=== PATIENT | male | born 1995 | race Caucasian/White ===

== ENCOUNTER 2017-10-29 20:41 | Inpatient (IN) ==
[2017-10-29] MEDS ORDERED: 0.9 % Sodium Chloride 1,000 ML IVC ONE ×2 (20:56→21:36)
--- NOTE | 2017-10-29 20:59 | Emergency Department Note ---
Disposition Clinical Impression: Hematochezia, Orthostasis, Hx of Crohn's disease Disposition: Admitted As Inpatient Condition: Undetermined Referrals: Julio Smith MD [Primary Care Provider] - Forms: ED Satisfaction Letter Time of Disposition: 21:47 GI Bleed HPI - General Chief complaint: ED GI Bleed Stated complaint: Rectal Bleeding Time Seen by Provider: 10/29/17 20:50 Source: patient Mode of arrival: ambulatory Limitations: no limitations Nursing Notes Reviewed: Yes Vital Signs Reviewed: Yes - History of Present Illness HPI Narrative: 22-year-old male with recent diagnosis of Crohn's disease arrives to the emergency department with roughly 24 hours of rectal bleeding. The patient states he did not think much of it initially because it is not uncommon for him to have intermittent episodes of bloody stool and the patient states that earlier today he started having gross blood in her stool was not feeling well. The patient states he went and played 9 rounds of golf and states that he felt very ill at that time so he decided to stop playing go home. The patient states that he had another bowel movement home and was gross blood and he passed out. The patient states he sort of blacked out prior to and then cut off fell over. He had no loss of bowel or bladder at that time. He remembers waking up. He said it was just a couple seconds. He denies any previous history of anything like this in the past. The patient recently had a CT scan 2 days ago for his abdomen. He is currently on prednisone as well as by mouth antibiotics for his Crohn's disease. He denies any abdominal pain is unusual for him or any other changes other than the rectal bleeding. He is resting comfortably in the room at this time. - Related Data Home Medications Medication Instructions Recorded Confirmed Escitalopram [Lexapro] 10 mg PO DAILY 08/30/17 10/11/17 Xyzal 5 mg PO DAILY 10/11/17 10/11/17 predniSONE [PredniSONE] 40 mg PO DAILY 10/11/17 10/11/17 Allergies Allergy/AdvReac Type Severity Reaction Status Date / Time Sulfa (Sulfonamide Allergy See Verified 10/11/17 10:17 Antibiotics) Comments All systems ED: reviewed and negative except as stated. Constitutional: Denies: fever, chills ENT ED: Denies: congestion Cardiovascular: Denies: chest pain Respiratory: Denies: dyspnea Gastrointestinal: Reports: abdominal pain (baseline), hematochezia. Denies: nausea, vomiting, diarrhea, constipation, hematemesis, melena Genitourinary: Denies: urgency, dysuria Musculoskeletal: Denies: back pain Integumentary: Denies: rash Neurological: Denies: headache Past Medical History - Past Medical History Attestation: Yes The following information was validated with the patient. Source: patient Medical history: Reports: other (Crohns) Psychiatric history: Reports: anxiety - Social History Smoking Status: Never smoker Smokeless Tobacco Status: No Alcohol use: Reports: none Drug use: Reports: none Physical Exam - General Limitations: no limitations General appearance: alert, in no apparent distress - Head Head exam: atraumatic, normocephalic, normal inspection - Eye Eye exam: Present: normal appearance, PERRL, EOMI - ENT ENT exam: normal exam, normal oropharynx, mucous membranes moist - Neck Neck exam: Present: normal inspection, full ROM, trachea midline - Chest Chest inspection: Present: normal inspection, symmetric chest wall rise - Respiratory Respiratory exam: Present: normal lung sounds bilaterally - Cardiovascular Cardiovascular exam: Present: normal rhythm, tachycardia, normal heart sounds - Abdominal Exam Abdominal exam: Present: soft, Non-Tender. Absent: tenderness, distention, guarding, rebound, rigidity, Clemente's sign, Rovsing's sign, tenderness at McBurney's Point - Rectal Exam Restaurant Assistant Manager present during exam: Yes Rectal exam: Present: normal inspection, normal rectal tone, bloody stool. Absent: hemorrhoids - Extremities Exam Extremities exam: Present: normal inspection, full ROM. Absent: tenderness, pedal edema - Neurological Exam Neurological exam: Present: alert, oriented X3 - Skin Skin exam: Present: warm, dry, intact, normal color Course Vital Signs Temperature 98.2 F 10/29/17 20:42 Pulse Rate 141 10/29/17 20:42 Respiratory Rate 16 10/29/17 20:42 Blood Pressure 106/74 10/29/17 20:42 O2 Sat by Pulse Oximetry 100 10/29/17 20:42 Temperature 98.2 F 10/29/17 20:42 Pulse Rate 115 10/29/17 21:17 Respiratory Rate 16 10/29/17 20:42 Blood Pressure 135/89 10/29/17 21:17 O2 Sat by Pulse Oximetry 100 10/29/17 20:42 Oxygen Delivery Oxygen Delivery Room Air GI Bleed - [facility] Narrative Medical decision making narrative: Patient's workup in the emergency department consistent with symptoms. The patient was grossly positive on rectal examination. The patient was orthostatic as well. Patient was administered 2 L of IV fluids here in the emergency department. The patient had a CT scan 2 days ago which demonstrates no acute findings. The patient's abdominal exam is benign at this time. Given the patient's extensive rectal bleeding with roughly 6-7 episodes prior to arrival emergency department combined with his orthostasis, we will admit the patient to the hospital at this time. A type and screen was drawn as well. Accepted by Dr. Diaz. - Medical Records Medical records reviewed: Yes I reviewed the patient's medical records. - Lab Data Lab results reviewed: Yes I reviewed the patient's lab results. Result diagrams: 10/29/17 21:00 10/29/17 21:00 Lab Results 10/29/17 10/29/17 10/29/17 Range/Units 21:00 21:00 21:00 WBC 26.5 H (4.3-11.1) K/mcL RBC 4.50 (4.19-5.50) M/mcL Hgb 11.0 L (12.9-16.9) g/dL Hct 35.6 L (37.5-50.1) % MCV 79.1 L (83.0-100.0) fL MCH 24.4 L (28.0-33.3) pg MCHC 30.9 L (31.6-35.5) g/dL RDW 15.4 H (11.5-14.5) % Plt Count 427 H (140-400) K/mcL MPV 9.6 (9.4-12.4) fL Immature Gran % 1.6 (0-4) % Seg Neutrophils % 65.4 % Lymphocytes % 23.9 % Monocytes % 8.6 % Eosinophils % 0.2 % Basophils % 0.3 % Neutrophils # 17.3 H (1.6-8.9) K/mcL Lymphocytes # 6.3 H (0.6-4.6) K/mcL Monocytes # 2.3 H (0.0-1.3) K/mcL Eosinophils # 0.1 (0.0-0.6) K/mcL Basophils # 0.1 (0.0-0.2) K/mcL Reactive Lymphocytes Present A (Not Present) Toxic Granulation Present A (Not Present) Clumped Platelets Few A (Not Present) Large Platelets Present A (Not Present) Hypochromasia Present A (Not Present) Microcytosis Present A (Not Present) Sodium 140 (136-145) mEq/L Potassium 3.5 (3.5-5.1) mEq/L Chloride 105 (98-107) mEq/L Carbon Dioxide 26 (23-29) mEq/L BUN 23 H (6-20) mg/dL Creatinine 1.04 (0.70-1.30) mg/dL Est GFR ( Amer) > 60 (> 60) Est GFR (Non-Af Amer) > 60 (> 60) BUN/Creatinine Ratio 22 (6-26) Glucose 105 (70-105) mg/dL Calculated Osmolality 294 (280-300) Calcium 8.9 (8.6-10.3) mg/dL Blood Type O POSITIVE - EKG Data EKG attestation: Yes I reviewed and interpreted this EKG. EKG results narrative: Heart rate 127 beats for minute. Sinus tachycardia. No ST elevation or ST depression noted. No previous EKG on record.
[2017-10-29 21:12] LABS: Immature Granulocytes % 1.6 % (0-4); Mean Corpuscular Volume 79.1 fL (83.0-100.0); Mean Platelet Volume 9.6 fL (9.4-12.4); Red Cell Distribution Width 15.4 % (11.5-14.5)
[2017-10-29 21:13] LABS: Basophils # 0.1 K/mcL (0.0-0.2); Basophils % 0.3 %; Eosinophils # 0.1 K/mcL (0.0-0.6); Eosinophils % 0.2 %; Hematocrit 35.6 % (37.5-50.1); Lymphocytes # 6.3 K/mcL (0.6-4.6); Lymphocytes % 23.9 %; Mean Corpuscular HGB Conc 30.9 g/dL (31.6-35.5); Mean Corpuscular Hemoglobin 24.4 pg (28.0-33.3); Monocytes # 2.3 K/mcL (0.0-1.3); Monocytes % 8.6 %; Platelet Count 427 K/mcL (140-400); Segmented Neutrophils % 65.4 %
[2017-10-29 21:15] LABS: Neutrophils # 17.3 K/mcL (1.6-8.9)
[2017-10-29 21:31] LABS: BUN/Creatinine Ratio 22 (6-26); Blood Urea Nitrogen 23 mg/dL (6-20); Calcium 8.9 mg/dL (8.6-10.3); Carbon Dioxide 26 mEq/L (23-29); Chloride 105 mEq/L (98-107); Glucose 105 mg/dL (70-105); Osmolality,Calculated 294 (280-300); Potassium 3.5 mEq/L (3.5-5.1); Sodium 140 mEq/L (136-145); eGFR For African Americans > 60 (> 60); eGFR For Non-African Americans > 60 (> 60)
[2017-10-29] MEDS ORDERED: 0.9 % Sodium Chloride 1,000 ML ONE (21:37)
[2017-10-29 21:45] LABS: Large Platelets Present (Not Present); Platelet Clumps Few (Not Present); Reactive Lymphocytes Present (Not Present); Toxic Granulation Present (Not Present)
[2017-10-29 21:46] LABS: Hypochromasia Present (Not Present); Microcytosis Present (Not Present)
--- NOTE | 2017-10-29 21:52 | Emergency Department Note ---
Disposition Clinical Impression: Hematochezia, Orthostasis, Hx of Crohn's disease Disposition: Admitted As Inpatient Condition: Undetermined Referrals: Julio Smith MD [Primary Care Provider] - Forms: ED Satisfaction Letter General Adult HPI - General Chief complaint: ED GI Bleed Stated complaint: Rectal Bleeding Time Seen by Provider: 10/29/17 20:50 Source: patient Mode of arrival: ambulatory Limitations: no limitations Nursing Notes Reviewed: Yes Vital Signs Reviewed: Yes - History of Present Illness Pain Scale: 0 - Related Data Home Medications Medication Instructions Recorded Confirmed Escitalopram [Lexapro] 10 mg PO DAILY 08/30/17 10/11/17 Xyzal 5 mg PO DAILY 10/11/17 10/11/17 predniSONE [PredniSONE] 40 mg PO DAILY 10/11/17 10/11/17 Allergies Allergy/AdvReac Type Severity Reaction Status Date / Time Sulfa (Sulfonamide Allergy See Verified 10/11/17 10:17 Antibiotics) Comments Constitutional: Denies: fever, chills ENT ED: Denies: congestion Cardiovascular: Denies: chest pain Respiratory: Denies: dyspnea Gastrointestinal: Reports: abdominal pain (baseline), hematochezia. Denies: nausea, vomiting, diarrhea, constipation, hematemesis, melena Genitourinary: Denies: urgency, dysuria Musculoskeletal: Denies: back pain Integumentary: Denies: rash Neurological: Denies: headache Past Medical History - Past Medical History Medical history: Reports: other (Crohns) Psychiatric history: Reports: anxiety - Social History Smoking Status: Never smoker Smokeless Tobacco Status: No Alcohol use: Reports: none Drug use: Reports: none Physical Exam - General Limitations: no limitations General appearance: alert, in no apparent distress Course Vital Signs Temperature 98.2 F 10/29/17 20:42 Pulse Rate 141 10/29/17 20:42 Respiratory Rate 16 10/29/17 20:42 Blood Pressure 106/74 10/29/17 20:42 O2 Sat by Pulse Oximetry 100 10/29/17 20:42 Temperature 98.2 F 10/29/17 20:42 Pulse Rate 115 10/29/17 21:17 Respiratory Rate 16 10/29/17 20:42 Blood Pressure 135/89 10/29/17 21:17 O2 Sat by Pulse Oximetry 100 10/29/17 20:42 Oxygen Delivery Oxygen Delivery Room Air Medical Decision Making - Lab Data Result diagrams: 10/29/17 21:00 10/29/17 21:00 Lab Results 10/29/17 10/29/17 10/29/17 Range/Units 21:00 21:00 21:00 WBC 26.5 H (4.3-11.1) K/mcL RBC 4.50 (4.19-5.50) M/mcL Hgb 11.0 L (12.9-16.9) g/dL Hct 35.6 L (37.5-50.1) % MCV 79.1 L (83.0-100.0) fL MCH 24.4 L (28.0-33.3) pg MCHC 30.9 L (31.6-35.5) g/dL RDW 15.4 H (11.5-14.5) % Plt Count 427 H (140-400) K/mcL MPV 9.6 (9.4-12.4) fL Immature Gran % 1.6 (0-4) % Seg Neutrophils % 65.4 % Lymphocytes % 23.9 % Monocytes % 8.6 % Eosinophils % 0.2 % Basophils % 0.3 % Neutrophils # 17.3 H (1.6-8.9) K/mcL Lymphocytes # 6.3 H (0.6-4.6) K/mcL Monocytes # 2.3 H (0.0-1.3) K/mcL Eosinophils # 0.1 (0.0-0.6) K/mcL Basophils # 0.1 (0.0-0.2) K/mcL Reactive Lymphocytes Present A (Not Present) Toxic Granulation Present A (Not Present) Clumped Platelets Few A (Not Present) Large Platelets Present A (Not Present) Hypochromasia Present A (Not Present) Microcytosis Present A (Not Present) Sodium 140 (136-145) mEq/L Potassium 3.5 (3.5-5.1) mEq/L Chloride 105 (98-107) mEq/L Carbon Dioxide 26 (23-29) mEq/L BUN 23 H (6-20) mg/dL Creatinine 1.04 (0.70-1.30) mg/dL Est GFR ( Amer) > 60 (> 60) Est GFR (Non-Af Amer) > 60 (> 60) BUN/Creatinine Ratio 22 (6-26) Glucose 105 (70-105) mg/dL Calculated Osmolality 294 (280-300) Calcium 8.9 (8.6-10.3) mg/dL Blood Type O POSITIVE Attestation Statement - Attestation Attestation: I, Deni Hardy MD, personally evaluated this patient and discussed their management with the resident physician. I reviewed the resident's note and agree with the documented findings, medical decision making, and plan of care. 22-year-old male presents to the emergency department with a complaint of bright red rectal bleeding which started about 4 PM today. He states he has had about 6 episodes of passing a large amount of bright and dark red blood per rectum. He denies any abdominal pain. He did have a syncopal episode while sitting on the toilet and he woke up in the floor. Patient has a history of Crohn's disease and felt like he was just having a Crohn's flareup. No nausea or vomiting. No fever. On examination patient is a well-developed obese young male in no acute distress. He is alert and oriented 3. There is no cyanosis or diaphoresis. Breath sounds are clear and equal bilaterally. Heart regular with a mild tachycardia. Abdomen is soft and nontender with slightly increased bowel sounds. No guarding or rebound tenderness. No CVA tenderness. Labs reviewed. The hospitalist, Dr. Diaz, was consulted and accepted admission of the patient.
[2017-10-29 21:57] LABS: INR 1.2; Prothrombin Time 12.5 Seconds (9.4-12.1)
--- NOTE | 2017-10-29 22:35 | Internal Med History&Physical ---
<Yeimi Jorge H - Last Filed: 10/29/17 23:05> Date of Encounter: 10/29/17 Time of Encounter: 22:35 Internal Medicine - H&P: HPI Chief complaint: lower GI bleed Admitted From: Emergency Dept Plans for Post Hospital Care: Home History of present illness: Mr. Calabrese is a 22 year old male with past medical history of asthma and a recent diagnosis of Crohn's colitis. He presented to [facility] on 10/29/2017 with chief complaints of rectal bleeding and a near syncopal episode. Patient states after playing golf with some friends today, he returned home with an uneasy stomach. He went to the bathroom and had a large bowel movement that consisted of bright red and maroon colored blood. He then tried to lay down to help his stomach discomfort which he describes as an "upside down" feeling. He had 3 more bloody bowel movements during this time. At approximately 8 PM, he went to the bathroom where he defecated another large maroon-colored bloody bowel movement. He stated he began to feel lightheaded, dizzy, and diaphoretic, at which time he fell to the floor. He states he is unsure if he lost consciousness. He remembers waking up right afterwards. He denies hitting his head. He denies any aches or pains. He denies any nausea, vomiting, diarrhea, or mucus in his stool. He denies any abdominal pain. In the ED, the patient received 2 L of fluid. Currently, he denies any dizziness, lightheadedness, fatigue, or weakness. He denies abdominal pain, nausea, vomiting, or any further bloody bowel movements. The patient is accompanied by his mother. He was diagnosed with Crohn's enterocolitis by colonoscopy in August. He follows with Dr. Sloan as an outpatient. In the beginning of October, patient underwent EGD which demonstrated H pylori infection. He is currently undergoing outpatient treatment for H pylori infection as well as Crohn's colitis in his terminal ileum. Past Med Surg Social Fam HX - Past Medical History Attestation: Yes The following information was validated with the patient. Source: patient, old records reviewed Medical history: arthritis, other (Crohns) Psychiatric history: anxiety - Social History Smoking Status: Never smoker Smokeless Tobacco Status: No Alcohol use: none Drug use: none Internal Medicine - H&P: Meds Amoxicillin [Amoxil] 500 mg PO BID 10/29/17 [History] Clarithromycin [Biaxin] 500 mg PO BID 10/29/17 [History] Dicyclomine [Bentyl] 10 mg PO QID 10/29/17 [History] Escitalopram [Lexapro] 10 mg PO DAILY 10/29/17 [History] Omeprazole [PriLOSEC] 20 mg PO DAILY 10/29/17 [History] predniSONE [PredniSONE] 40 mg PO DAILY 10/29/17 [History] 3 Allergy/AdvReac Type Severity Reaction Status Date / Time Sulfa (Sulfonamide Allergy See Verified 10/11/17 10:17 Antibiotics) Comments All Systems PM: A 10-system review of systems was performed and is negative for pertinent findings except as documented above in the HPI. - Constitutional Constitutional: no anorexia, no chills, no excessive sweating, no fatigue, no falls, no lethargy, no malaise, no weight gain, no weight loss - EENT Eyes: no change in vision, no other visual disturbances Nose, mouth and throat: no nasal congestion, no nasal discharge - Cardiovascular Cardiovascular ROS IM: lightheadedness, no chest pain, no diaphoresis, no dyspnea, no dyspnea on exertion, no edema, no irregular heart rhythm, no orthopnea, no palpitations, no paroxysmal nocturnal dyspnea, no syncope - Respiratory Respiratory: no cough, no dyspnea, no chest congestion - Gastrointestinal Gastrointestinal: dyspepsia, hematochezia, no abdominal pain, no coffee ground emesis, no constipation, no cramping, no heartburn, no hematemesis, no loose stools, no melena, no nausea - Genitourinary Genitourinary ROS male: no dysuria, no flank pain, no hematuria - Integumentary Integumentary IM: no erythema, no rash, no jaundice - Neurological Neurological ROS: no abnormal gait, no convulsions, no frequent falls, no numbness, no paresthesias, no vertigo - Endocrine Endocrine IM: no cold intolerance, no heat intolerance - Hematologic/Lymphatic Hematologic/Lymphatic: no easy bleeding - Constitutional Vitals: Temp Pulse Resp BP Pulse Ox 98.2 F 123 16 131/72 100 10/29/17 20:42 10/29/17 22:19 10/29/17 22:19 10/29/17 22:19 10/29/17 22:19 General appearance: Present: cooperative, A&O X 3, pleasant, no acute distress, answers questions appropriately - Head Head exam: Present: atraumatic, normocephalic - Eye Eye exam: Present: PERRL, conjuntiva pink, sclera anicteric Pupils: Present: PERRL - Neck Neck exam general surgery: Present: supple, trachea midline. Absent: lymphadenopathy - Respiratory Respiratory exam: Present: CTAB. Absent: accessory muscle use, rales, rhonchi, wheezes - Cardiovascular Cardiovascular exam: Present: +S1, +S2, tachycardia. Absent: diastolic murmur, gallop, rubs, systolic murmur - GI/Abdominal GI/Abdominal exam: Present: normal bowel sounds, soft, no peritoneal signs. Absent: distended, guarding, hernia, tenderness - Extremities Exam Extremities exam: Present: warm, radial pulses palpable and symmetrical. Absent : calf tenderness, cyanotic, pedal edema - Neurological Exam Neurological exam: Present: CN II-XII intact, oriented X3, no focal deficits. Absent: pronater drift, facial droop, speech deficit - Skin Skin exam: Present: dry, intact, warm. Absent: pallor Internal Med - H&P Results - Labs CBC & Chem 7: 10/29/17 21:00 10/29/17 21:00 - Assessment and plan (1) Acute blood loss anemia Current Visit: Yes Status: Acute Assessment and plan: 22-year-old male with recent diagnosis of Crohn's colitis and H. pylori infection presents with acute GI bleed per rectum with resultant acute blood loss anemia. Patient reports a near syncopal episode which is likely due to the hypovolemia as evidenced by positive orthostatics obtained in the ED. -Hemoglobin currently 11.5. Will transfuse if drops less than 7. -Patient tachycardic despite 2 L of fluid given in the ED. Will keep on telemetry and monitor vitals every hour. -Trend H&H every 4 hours. -IV fluids, IV Protonix drip. (2) GI bleed Current Visit: Yes Status: Acute Assessment and plan: Seen management as per above under acute blood loss anemia. -IV Protonix, IVF, NPO, monitor vitals, trend H&H, telemetry, consult to gastroenterology. Qualifiers: GI bleed type/associated pathology: unspecified gastrointestinal hemorrhage type Qualified Code(s): K92.2 - Gastrointestinal hemorrhage, unspecified (3) Helicobacter pylori (H. pylori) infection Current Visit: Yes Status: Acute Assessment and plan: Patient currently nothing by mouth. Will oral amoxicillin and clarithromycin for now. (4) Hx of Crohn's disease Current Visit: Yes Status: Acute Assessment and plan: Gastroenterology consulted. Will give Solu-Medrol 60 mg IV twice a day. (5) DVT prophylaxis Current Visit: Yes Status: Acute Assessment and plan: EPCDs as patient currently under fall precautions. Up with assistance. (6) Near syncope Current Visit: Yes Status: Acute Assessment and plan: Patient with near syncopal episode likely due to hypovolemia secondary to acute blood loss anemia as evidenced by orthostatics and presenting illness. -fall precautions -up with assistance. - Time Spent With Patient Total time spent is greater than 50% in coordination of care (as documented) at patient's floor/unit and/or counseling patient: <Bharat Lama - Last Filed: 10/29/17 23:36> Date of Encounter: 10/29/17 Internal Medicine - H&P: HPI History of present illness: Mr. Calabrese is a 22 year old male All Systems PM: A 10-system review of systems was performed and is negative for pertinent findings except as documented above in the HPI. - Constitutional Vitals: Temp Pulse Resp BP Pulse Ox 98.2 F 123 16 131/72 100 10/29/17 20:42 10/29/17 22:19 10/29/17 22:19 10/29/17 22:19 10/29/17 22:19 Internal Med - H&P Results - Labs CBC & Chem 7: 10/29/17 23:09 10/29/17 21:00 Labs: Short CBC 10/29/17 Range/Units 23:09 Hgb 9.6 L (12.9-16.9) g/dL Hct 30.1 L (37.5-50.1) % - Attending Attestation I have seen and examined this patient independently. I have discussed with resident physician Dr. Jorge regarding the management plan. Agree with the documentation. - Assessment and plan (1) Hx of Crohn's disease Current Visit: Yes Status: Acute (2) Acute blood loss anemia Current Visit: Yes Status: Acute (3) GI bleed Current Visit: Yes Status: Acute Qualifiers: GI bleed type/associated pathology: unspecified gastrointestinal hemorrhage type Qualified Code(s): K92.2 - Gastrointestinal hemorrhage, unspecified (4) Helicobacter pylori (H. pylori) infection Current Visit: Yes Status: Acute (5) DVT prophylaxis Current Visit: Yes Status: Acute (6) Near syncope Current Visit: Yes Status: Acute - Time Spent With Patient Total time spent is greater than 50% in coordination of care (as documented) at patient's floor/unit and/or counseling patient:
[2017-10-29] MEDS ORDERED: Acetaminophen 325 MG TABLET PO PRN (23:06)
[2017-10-29] MEDS ORDERED: Naloxone 0.4 MG/ML INJ IVP PRN (23:06)
[2017-10-29] MEDS ORDERED: *HR* HYDROcodone/Acet 5/325 mg TABLET PO PRN (23:06)
[2017-10-29 23:27] LABS: Hematocrit 30.1 % (37.5-50.1); Hemoglobin 9.6 g/dL (12.9-16.9)
[2017-10-29] MEDS: 0.9 % Sodium Chloride 1,000 ML IVC SCH (23:48)
[2017-10-29] MEDS: Pantoprazole 40 MG in 0.9 % Sodium Chloride Mini Bag 100 ML IVC SCH (23:48)
[2017-10-30] MEDS: methylPREDNISolone 125 MG/2 ML VIAL IVP SCH ×2 (00:32→05:00)
[2017-10-30 03:17] LABS: Basophils % 0.1 %; Eosinophils % 0.3 %; Hematocrit 27.2 % (37.5-50.1); Hemoglobin 8.6 g/dL (12.9-16.9); Immature Granulocytes % 1.6 % (0-4); Lymphocytes # 1.9 K/mcL (0.6-4.6); Lymphocytes % 16.5 %; Mean Corpuscular HGB Conc 31.6 g/dL (31.6-35.5); Mean Corpuscular Hemoglobin 25.2 pg (28.0-33.3); Mean Corpuscular Volume 79.8 fL (83.0-100.0); Mean Platelet Volume 9.9 fL (9.4-12.4); Monocytes # 0.6 K/mcL (0.0-1.3); Monocytes % 5.4 %; Neutrophils # 8.7 K/mcL (1.6-8.9); Platelet Count 272 K/mcL (140-400); Red Blood Count 3.41 M/mcL (4.19-5.50); Red Cell Distribution Width 15.7 % (11.5-14.5); Segmented Neutrophils % 76.1 %
[2017-10-30 03:33] LABS: Alanine Aminotransferase 12 Units/L (7-52); Albumin 2.8 g/dL (3.5-5.7); Albumin/Globulin Ratio 1.3 (1.1-2.2); Alkaline Phosphatase 54 Units/L (34-104); Aspartate Amino Transferase 9 Units/L (13-39); BUN/Creatinine Ratio 21 (6-26); Bilirubin,Total 0.4 mg/dL (0.3-1.0); Blood Urea Nitrogen 18 mg/dL (6-20); Calcium 8.2 mg/dL (8.6-10.3); Carbon Dioxide 25 mEq/L (23-29); Chloride 109 mEq/L (98-107); Globulin 2.1 g/dL (2.4-3.5); Glucose 117 mg/dL (70-105); Magnesium 1.7 mg/dL (1.6-2.6); Osmolality,Calculated 293 (280-300); Phosphorous 3.2 mg/dL (2.7-4.5); Sodium 140 mEq/L (136-145); Total Protein 4.9 g/dL (6.4-8.9); eGFR For African Americans > 60 (> 60); eGFR For Non-African Americans > 60 (> 60)
[2017-10-30] MEDS: Pantoprazole 40 MG in 0.9 % Sodium Chloride Mini Bag 100 ML IVC SCH ×4 (04:51→20:55)
[2017-10-30 06:21] LABS: Hematocrit 28.5 % (37.5-50.1)
[2017-10-30] MEDS: Amoxicillin 500 MG CAPSULE PO SCH ×2 (08:42→20:54)
[2017-10-30] MEDS: 0.9 % Sodium Chloride 1,000 ML IVC SCH (08:43)
--- NOTE | 2017-10-30 10:17 | Electrocardiograph Report ---
[address] [address] Test Date: 2017-10-29 Pat Name: Gabino Calabrese Department: 103 Room: 2A24 Gender: M Draw Tender: ISA : 1995 Requested By: Lawrence Griffin Order Number: [id number] Reading MD: Shakira Dexter Measurements Intervals [place] Rate: 127 P: 46 WI: 133 QRS: -10 QRSD: 89 T: 30 QT: 292 QTc: 367 Interpretive Statements SINUS TACHYCARDIA Electronically Signed On 10-30-2017 10:16:08 EDT by Shakira Dexter
[2017-10-30] MEDS: MethylPREDNISolone 40 MG/ML VIAL IVP SCH ×2 (11:26→17:26)
--- NOTE | 2017-10-30 11:55 | Gastroenterology Consult Note ---
<Cain Morillo Aileen - Last Filed: 10/30/17 11:52> Date of Encounter: 10/30/17 Time of Encounter: 10:15 - Assessment and plan (1) Hx of Crohn's disease Current Visit: Yes Status: Acute Assessment and plan: Decrease Solu-Medrol to 60 mg daily. Plan for steroid taper upon discharge. (2) GI bleed Current Visit: Yes Status: Acute Assessment and plan: Likely secondary to Crohn's disease. Continue to monitor CBC. Will discuss EGD vs colonoscopy with Dr. Sloan. Qualifiers: GI bleed type/associated pathology: unspecified gastrointestinal hemorrhage type Qualified Code(s): K92.2 - Gastrointestinal hemorrhage, unspecified (3) Helicobacter pylori (H. pylori) infection Current Visit: Yes Status: Acute Assessment and plan: Continue Amoxicillin, Clarithromycin, and BID PPI. - Time Spent With Patient Total time spent is greater than 50% in coordination of care (as documented) at patient's floor/unit and/or counseling patient: GI History of Present Illness - Data of Consult Patient: known to practice within the last 3 years Consult date: 10/30/17 Requesting Physician: Raven Diaz - Consult Narrative Reason for consult: GI Bleed History of present illness: Mr. Calabrese is a 22 year old male with PMHx of asthma and recent diagnosis of Crohn's disease. He presented to [facility] on 10/29/2017 with chief complaints of rectal bleeding and a near syncopal episode. He went to the bathroom and had a large bowel movement that consisted of bright red and maroon colored blood. He then tried to lay down to help his stomach discomfort which he describes as an "upside down" feeling. He had 3 more bloody bowel movements during this time. At approximately 8 PM, he went to the bathroom where he defecated another large maroon-colored bloody bowel movement. He stated he began to feel lightheaded, dizzy, and diaphoretic, at which time he fell to the floor. He states he is unsure if he lost consciousness. He remembers waking up right afterwards. He denies hitting his head. He stated he began to feel lightheaded, dizzy, and diaphoretic, at which time he fell to the floor. He states he is unsure if he lost consciousness. He remembers waking up right afterwards. He denies hitting his head. He denies fever, chills, chest pain, SOB, abdominal pain, nausea, vomiting. Procedures: EGD 10/11/2017 Dr. Sloan: LA Grade A esophagitis, non-bleeding erosions in gastric antrum, gastritis, duodenitis, H pylori positive. Colonoscopy 08/30/2017 Dr. Sloan: Friable, furrowed, nodular, pseudopolypoid and ulcerated mucosa in TI, internal hemorrhoids. He stated he began to feel lightheaded, dizzy, and diaphoretic, at which time he fell to the floor. He states he is unsure if he lost consciousness. He remembers waking up right afterwards. He denies hitting his head. NSAIDs: None Anticoagulation: None Past Med Surg Social Fam HX - Past Medical History Medical history: other (Crohns) Psychiatric history: anxiety - Social History Smoking Status: Never smoker Smokeless Tobacco Status: No Alcohol use: none Drug use: none - Gastrointestinal Gastrointestinal: Present: as per HPI - Constitutional Constitutional: as per HPI - EENT Eyes: as per HPI Ears: Present: as per HPI Nose, mouth and throat: Present: as per HPI - Cardiovascular Cardiovascular ROS: Present: as per HPI - Respiratory Respiratory IM: Present: as per HPI - Genitourinary Genitourinary: Absent: change in color, Urinary frequency - Neurological ROS Neurological GI: Present: as per HPI - Hematologic/Lymphatic Hematologic/Lymphatic pediatric: Present: as per HPI - Musculoskeletal Musculoskeletal ROS GI: Present: as per HPI - Integumentary Integumentary GI: Present: as per HPI - Psychiatric ROS Psychiatric GI: Present: as per HPI - Endocrine Endocrine IM: Present: as per HPI - Constitutional Vitals: Temp Pulse Resp BP Pulse Ox 98.9 F 94 20 126/82 97 10/30/17 10:48 10/30/17 10:48 10/30/17 10:48 10/30/17 10:48 10/30/17 10:48 General appearance: Present: cooperative, A&O X 3, no acute distress, answers questions appropriately - Head Head exam: Present: atraumatic, normocephalic - Eye Eye exam: Present: normal appearance, sclera anicteric - ENT ENT exam: Present: mucous membranes dry - Neck Neck exam general surgery: Present: normal inspection, trachea midline - Respiratory Respiratory exam: Present: CTAB. Absent: rales, respiratory distress, rhonchi - Cardiovascular Cardiovascular exam: Present: RRR, +S1, +S2 - GI/Abdominal GI/Abdominal exam: Present: soft, no peritoneal signs. Absent: distended, firm , guarding, tenderness - Rectal Rectal exam: Present: deferred - Extremities Exam Extremities exam: Present: warm - Neurological Exam Neurological exam: Present: no focal deficits - Psychiatric Psychiatric exam: Present: normal affect, normal mood - Skin Skin exam: Present: dry, intact, normal color, warm Results - Labs CBC & Chem 7: 10/30/17 06:06 10/30/17 02:30 Labs: Last Result Calcium 8.2 mg/dL (8.6-10.3) L 10/30/17 02:30 Entire Visit Hgb 9.0 g/dL (12.9-16.9) L 10/30/17 06:06 Hct 28.5 % (37.5-50.1) L 10/30/17 06:06 PT 12.5 Seconds (9.4-12.1) H 10/29/17 21:00 Total Bilirubin 0.4 mg/dL (0.3-1.0) 10/30/17 02:30 AST 9 Units/L (13-39) L 10/30/17 02:30 ALT 12 Units/L (7-52) 10/30/17 02:30 - ABG ABG results: PT/INR, D-dimer PT 12.5 Seconds (9.4-12.1) H 10/29/17 21:00 Consult Discharge Plan - Plan Referrals: Julio Smith MD [Primary Care Provider] - 11/06/17 1:45 pm (Please follow up as schedule...) <Adair Sloan - Last Filed: 10/30/17 12:57> Date of Encounter: 10/30/17 - Time Spent With Patient Total time spent is greater than 50% in coordination of care (as documented) at patient's floor/unit and/or counseling patient: GI History of Present Illness - Data of Consult Requesting Physician: Raven Diaz - Consult Narrative History of present illness: Mr. Calabrese is a 22 year old male - Constitutional Vitals: Temp Pulse Resp BP Pulse Ox 98.9 F 94 20 126/82 97 10/30/17 10:48 10/30/17 10:48 10/30/17 10:48 10/30/17 10:48 10/30/17 10:48 Results - Labs CBC & Chem 7: 10/30/17 06:06 10/30/17 02:30 Labs: Last Result Calcium 8.2 mg/dL (8.6-10.3) L 10/30/17 02:30 Entire Visit Hgb 9.0 g/dL (12.9-16.9) L 10/30/17 06:06 Hct 28.5 % (37.5-50.1) L 10/30/17 06:06 PT 12.5 Seconds (9.4-12.1) H 10/29/17 21:00 Total Bilirubin 0.4 mg/dL (0.3-1.0) 10/30/17 02:30 AST 9 Units/L (13-39) L 10/30/17 02:30 ALT 12 Units/L (7-52) 10/30/17 02:30 - ABG ABG results: PT/INR, D-dimer PT 12.5 Seconds (9.4-12.1) H 10/29/17 21:00 - Attending Attestation Patient with IBD on Prednisone 40 mg daily and on antihelicobacter therapy was in his usual state of health when he and his mom grabbed a quick lunch at [employer] (he had a cheeseburger) felt fine but around 4 pm yesterday started cramping and had a few burgundy colored bowel movements. No history of syncope/ presyncope. Agree with reducing the dose of Solumedrol to 15 mg qid. Check C difficile and stool studies. Plan EGD today and colonoscopy tomorrow. I have personally performed a face to face evaluation on this patient. I have reviewed and agree with the care plan. History and Exam by me shows:
[2017-10-30] MEDS ORDERED: *HR* Propofol 200 MG/20 ML VIAL IVP ONE (13:13)
[2017-10-30] MEDS ORDERED: Lidocaine -MPF 2% 2 ML VIAL ONE (13:13)
--- NOTE | 2017-10-30 13:25 | Anesthesia Evaluation PreOp ---
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 Any Significant HX Other Medical History: GERD, Other (anxiety) Anesthesia History: No Prior Anesthetic Complications, Past Anesthesia Alcohol Use: occasionally Drug use: none Medications and Allergies Amoxicillin [Amoxil] 500 mg PO BID 10/29/17 [History] Clarithromycin [Biaxin] 500 mg PO BID 10/29/17 [History] Dicyclomine [Bentyl] 10 mg PO QID 10/29/17 [History] Escitalopram [Lexapro] 10 mg PO DAILY 10/29/17 [History] Omeprazole [PriLOSEC] 20 mg PO DAILY 10/29/17 [History] predniSONE [PredniSONE] 40 mg PO DAILY 10/29/17 [History] 3 Allergy/AdvReac Type Severity Reaction Status Date / Time Sulfa (Sulfonamide Allergy See Verified 10/30/17 06:56 Antibiotics) Comments - Meds/Allergy Pre-op Review Medications Reviewed: Yes Allergies Reviewed: Yes Beta Blockers on Current Med List: No Anesthesia Results - Labs 10/30/17 06:06 10/30/17 02:30 - Imaging EKG: report reviewed (10/29/2017 SINUS TACHYCARDIA) Anesthesia Exam Vital Signs/O2 Sat, Most Current Temp Pulse Resp BP Pulse Ox 98.9 F 94 20 126/82 97 10/30/17 10:48 10/30/17 10:48 10/30/17 10:48 10/30/17 10:48 10/30/17 10:48 Height: 6'1'' Weight: 271 lbs NPO (# of Hours): 8 Pain Scale: 0 Pain Scale Used: Numeric (1 - 10) - HEENT Pupil (Motor): EOMI Mallampati: III Teeth: Normal Oral Opening: Greater than 3 - AFFILIATE MANAGER LOC: Oriented AFFILIATE MANAGER Motor: Normal RUE, Normal LUE, Normal RLE, Normal LLE, Normal Face AFFILIATE MANAGER Sensory: Normal: RUE, LUE, RLE, LLE, Face - Cardiac Rhythm: Regular Murmur: None - Pulmonary Breath Sounds: bilateral Clear Respiratory Effort: Symmetrical Anesthesia Assess/Plan ASA Score: 2 Modified [place] Scale for Level of Consciousness: Cooperative, oriented, and tranquil Anesthetic Plan: MAC Monitoring Plan: Standard Monitors
--- NOTE | 2017-10-30 14:08 | Internal Med Progress Note ---
Date of Encounter: 10/30/17 Time of Encounter: 10:27 - Assessment and plan (1) GI bleed Current Visit: Yes Status: Acute Assessment and plan: Likely secondary to Crohn's disease. Hgb down slightly to 8.6 this AM. GI consulted; appreciate input. Continue IV Protonix, IVF, NPO, monitor vitals, trend H&H, and telemetry. Treat Crohns's as per below. Transfuse if Hgb < 7.0. Recheck CBC in AM. Qualifiers: GI bleed type/associated pathology: unspecified gastrointestinal hemorrhage type Qualified Code(s): K92.2 - Gastrointestinal hemorrhage, unspecified (2) Acute blood loss anemia Current Visit: Yes Status: Acute Assessment and plan: Management as per above. (3) Hx of Crohn's disease Current Visit: Yes Status: Acute Assessment and plan: GI consulted; appreciate input. Continue solumedrol 60 mg IV BID. (4) Helicobacter pylori (H. pylori) infection Current Visit: Yes Status: Acute Assessment and plan: Continue home oral amoxicillin and clarithromycin (last day of treatment today). (5) Near syncope Current Visit: Yes Status: Acute Assessment and plan: Likely due to hypovolemia secondary to acute blood loss anemia as evidenced by orthostatics and presenting illness. Continue fall precautions and up with assistance. Treat GI bleed and anemia as per above. (6) DVT prophylaxis Current Visit: Yes Status: Acute Assessment and plan: SCDs given suspected GI bleed. - Time Spent With Patient Total time spent is greater than 50% in coordination of care (as documented) at patient's floor/unit and/or counseling patient: less than 15 minutes - Subjective Interval history: Patient had no acute events overnight. He states that he is feeling better. He denies chest pain, SOB, abdominal pain, nausea, or vomiting. He has no complaints. - Constitutional Vitals: Temp Pulse Resp BP Pulse Ox 98.8 F 110 18 125/90 98 10/30/17 13:48 10/30/17 13:48 10/30/17 13:48 10/30/17 13:48 10/30/17 13:48 General appearance: Present: cooperative, A&O X 3, pleasant, no acute distress, answers questions appropriately - Respiratory Respiratory exam: Present: CTAB. Absent: accessory muscle use, rales, rhonchi, wheezes Additional comments: Normal WOB - Cardiovascular Cardiovascular exam: Present: RRR, +S1, +S2. Absent: diastolic murmur, gallop, rubs, systolic murmur Additional comments: No BLE edema - GI/Abdominal GI/Abdominal exam: Present: normal bowel sounds, soft. Absent: distended, hepatomegaly, mass, splenomegaly, tenderness - Psychiatric Psychiatric exam: Present: normal affect, normal mood. Absent: agitated, anxious, depressed - Skin Skin exam: Present: dry, intact, warm. Absent: cyanosis, rash Internal Medicine: Result - Labs CBC & Chem 7: 10/30/17 06:06 10/30/17 02:30 Labs: Short CBC 10/29/17 10/30/17 10/30/17 Range/Units 23:09 02:30 06:06 WBC 11.4 H D (4.3-11.1) K/mcL Hgb 9.6 L 8.6 L 9.0 L (12.9-16.9) g/dL Hct 30.1 L 27.2 L 28.5 L (37.5-50.1) % Plt Count 272 (140-400) K/mcL Neutrophils # 8.7 (1.6-8.9) K/mcL BMP 10/30/17 02:30 Sodium 140 Potassium 4.0 Chloride 109 H Carbon Dioxide 25 BUN 18 Creatinine 0.84 Glucose 117 H Calcium 8.2 L Liver Function 10/30/17 Range/Units 02:30 Total Bilirubin 0.4 (0.3-1.0) mg/dL AST 9 L (13-39) Units/L ALT 12 (7-52) Units/L Alkaline Phosphatase 54 (34-104) Units/L Albumin 2.8 L (3.5-5.7) g/dL - ABG Interpretation ABG results: PT/INR, D-dimer PT 12.5 Seconds (9.4-12.1) H 10/29/17 21:00 - VTE Reasons for not Prescribing Prophylaxis: Medical contraindication (Active GI bleed) Documentation of Mechanical Device: Intermittent pneumatic compression device Consult Discharge Plan - Plan Referrals: Julio Smith MD [Primary Care Provider] - 11/06/17 1:45 pm (Please follow up as schedule...)
[2017-10-30] MEDS ORDERED: SODIUM CHLORIDE/NAHCO3/KCL/PEG 4,000 ML SOLN.RECON PO ONE (17:00)
[2017-10-30] MEDS ORDERED: methylPREDNISolone 125 MG/2 ML VIAL IVP SCH (23:11)
[2017-10-31] MEDS: MethylPREDNISolone 40 MG/ML VIAL IVP SCH ×3 (01:53→11:08)
[2017-10-31] MEDS: Pantoprazole 40 MG in 0.9 % Sodium Chloride Mini Bag 100 ML IVC SCH ×3 (01:54→11:48)
[2017-10-31 06:11] LABS: Basophils % 0.1 %; Hemoglobin 8.6 g/dL (12.9-16.9); Immature Granulocytes % 1.5 % (0-4); Lymphocytes % 8.8 %; Mean Corpuscular HGB Conc 31.9 g/dL (31.6-35.5); Mean Corpuscular Hemoglobin 25.2 pg (28.0-33.3); Mean Corpuscular Volume 79.2 fL (83.0-100.0); Mean Platelet Volume 9.6 fL (9.4-12.4); Monocytes # 0.5 K/mcL (0.0-1.3); Monocytes % 4.2 %; Neutrophils # 9.9 K/mcL (1.6-8.9); Platelet Count 286 K/mcL (140-400); Red Blood Count 3.41 M/mcL (4.19-5.50); Red Cell Distribution Width 15.7 % (11.5-14.5); Segmented Neutrophils % 85.4 %
[2017-10-31 06:29] LABS: BUN/Creatinine Ratio 17 (6-26); Blood Urea Nitrogen 11 mg/dL (6-20); Calcium 9.4 mg/dL (8.6-10.3); Carbon Dioxide 26 mEq/L (23-29); Chloride 106 mEq/L (98-107); Glucose 135 mg/dL (70-105); Osmolality,Calculated 289 (280-300); Potassium 3.9 mEq/L (3.5-5.1); Sodium 139 mEq/L (136-145); eGFR For African Americans > 60 (> 60); eGFR For Non-African Americans > 60 (> 60)
[2017-10-31] MEDS: Amoxicillin 500 MG CAPSULE PO SCH (07:30)
[2017-10-31] MEDS ORDERED: Propofol 500 MG/50 ML INFUS..BTL ONE (12:30)
[2017-10-31] MEDS ORDERED: Lidocaine -MPF 2% 2 ML VIAL ONE (12:47)
--- NOTE | 2017-10-31 12:55 | Anesthesia Evaluation PreOp ---
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 Other Medical History: GERD, Other (anxiety, Crohn's - been on steroids for the past 4-5 weeks) Anesthesia History: No Prior Anesthetic Complications, Past Anesthesia Alcohol Use: occasionally Drug use: none Medications and Allergies Amoxicillin [Amoxil] 500 mg PO BID 10/29/17 [History] Clarithromycin [Biaxin] 500 mg PO BID 10/29/17 [History] Dicyclomine [Bentyl] 10 mg PO QID 10/29/17 [History] Escitalopram [Lexapro] 10 mg PO DAILY 10/29/17 [History] Omeprazole [PriLOSEC] 20 mg PO DAILY 10/29/17 [History] predniSONE [PredniSONE] 40 mg PO DAILY 10/29/17 [History] 3 Allergy/AdvReac Type Severity Reaction Status Date / Time Sulfa (Sulfonamide Allergy See Verified 10/30/17 06:56 Antibiotics) Comments - Meds/Allergy Pre-op Review Medications Reviewed: Yes Allergies Reviewed: Yes Beta Blockers on Current Med List: No Anesthesia Results - Labs 10/31/17 05:59 10/31/17 05:59 - Imaging EKG: report reviewed, image reviewed (ST) Anesthesia Exam Last Vital Signs Temp 97.6 F 10/31/17 13:04 Pulse 96 10/31/17 13:04 Resp 20 10/31/17 13:04 BP 136/79 10/31/17 13:04 Pulse Ox 98 10/31/17 13:04 Weight: 123 kg NPO (# of Hours): > 8 hrs - HEENT Pupil (Motor): Pupils equal, EOMI Mallampati: III Teeth: Normal Oral Opening: Greater than 3 - PRINTER MAINTAINER LOC: Oriented PRINTER MAINTAINER Motor: Normal RUE, Normal LUE, Normal RLE, Normal LLE, Normal Face - Cardiac Rhythm: Regular Murmur: None - Pulmonary Breath Sounds: bilateral Clear Respiratory Effort: Symmetrical Anesthesia Assess/Plan ASA Score: 2 Modified [place] Scale for Level of Consciousness: Cooperative, oriented, and tranquil Anesthetic Plan: MAC Monitoring Plan: Standard Monitors Recovery Plan: PACU
[2017-10-31 13:05] VITALS: BP 136/79
--- NOTE | 2017-10-31 14:45 | Discharge Summary ---
- NOTES TO OUTPATIENT PROVIDER Notes to Outpatient Provider: f/u with GI Dr. Sloan in 1 week. cont Prednisone 40 mg PO Daily as prescribed before, until you see your Dr. Sloan Date of Encounter: 10/31/17 Time of Encounter: 14:43 - Discharge Diagnosis (1) Hx of Crohn's disease Priority: Primary Status: Acute (2) Acute blood loss anemia Priority: Primary Status: Acute (3) GI bleed Priority: Primary Status: Acute Qualifiers: GI bleed type/associated pathology: unspecified gastrointestinal hemorrhage type Qualified Code(s): K92.2 - Gastrointestinal hemorrhage, unspecified (4) Helicobacter pylori (H. pylori) infection Priority: Secondary Status: Acute (5) DVT prophylaxis Priority: Secondary Status: Acute (6) Near syncope Priority: Secondary Status: Acute Hospital course: Mr. Calabrese is a 22 year old male with PMHx of asthma and recent diagnosis of Crohn's disease. He presented to [facility] on 10/29/2017 with chief complaints of rectal bleeding and a near syncopal episode. Pt was admitted in the hospital and started him on IV steroids, NPO and IV hydration. Pt was evaluated by GI Dr. Sloan who did EGD y/d showed chronic gastritis and Grade A reflux esophagitis. Had Colonoscopy today which showed friability with contact bleeding in the terminal Ileum . Also showed non bleeding internal hemorrhoids. Pt symptoms improved now, no more active bleeding. His Hb stayed stable @ 8.6. So will send him home today with PO PPI and Carafate. He did finish his full course of rx for his H. Pylori. - Time Spent with Patient Total time spent providing and/or coordinating discharge services: - Discharge Medications Prescriptions: predniSONE [PredniSONE] 40 mg PO DAILY #60 tablet Sucralfate [Carafate] 1 gm PO QIDAC #120 tablet Home Medications: Dicyclomine [Bentyl] 10 mg PO QID 10/29/17 [History] Escitalopram [Lexapro] 10 mg PO DAILY 10/29/17 [History] Omeprazole [PriLOSEC] 20 mg PO DAILY 10/29/17 [History] Sucralfate [Carafate] 1 gm PO QIDAC #120 tablet 10/31/17 [Rx] predniSONE [PredniSONE] 40 mg PO DAILY #60 tablet 10/31/17 [Rx] Allergies/Adverse Reactions: 3 Allergy/AdvReac Type Severity Reaction Status Date / Time Sulfa (Sulfonamide Allergy See Verified 10/30/17 06:56 Antibiotics) Comments Date of admission: 10/29/17 23:04 Primary care physician: Julio Smith, Consults: 10/29/17 23:20 Consult to Gastroenterology [CONS] Routine Consulting Provider: [facility] Reason for Consult: GI bleed,acute blood loss anemia, recent diagnosis of crohn's and and h.pylori Time Notified: 08:51 Call Completed: Yes - Constitutional Vitals: Temp Pulse Resp BP Pulse Ox 97.6 F 96 20 136/79 98 10/31/17 13:04 10/31/17 13:04 10/31/17 13:04 10/31/17 13:04 10/31/17 13:04 General appearance: Present: cooperative, A&O X 3, pleasant, no acute distress, answers questions appropriately - Head Head exam: Present: atraumatic, normal inspection - Neck Neck exam general surgery: Present: supple - Respiratory Respiratory exam: Present: decreased breath sounds. Absent: rales, respiratory distress, rhonchi, wheezes - Cardiovascular Cardiovascular exam: Present: +S1, +S2. Absent: tachycardia - GI/Abdominal GI/Abdominal exam: Present: normal bowel sounds, soft. Absent: rebound, rigid, tenderness - Back Exam Back exam: Absent: CVA tenderness (L), CVA tenderness (R) - Neurological Exam Neurological exam: Present: alert, oriented X3 - Psychiatric Psychiatric exam: Present: normal affect, normal mood - Skin Skin exam: Absent: rash - Patient Status Disposition: Home, Self-Care Condition: Good Overall status at discharge: patient is back to baseline - Discharge Instructions Follow Up With: Julio Smith MD [Primary Care Provider] - 11/06/17 1:45 pm (Please follow up as schedule...) - Diet and Activity Activity: increase activity as tolerated Diet: other (soft diet) - VTE Reasons for not Prescribing Prophylaxis: Medical contraindication (Active GI bleed) Documentation of Mechanical Device: Intermittent pneumatic compression device
== END 2017-10-31 15:13 | disposition home or self-care (01) | DRG 386 ==
LOC: EMEROO 20:41 → 2ANU 20:41 → SUATTDRO 23:04
PROVIDERS: ADMIT Internal Medicine; ATTEND Family Medicine

== ENCOUNTER 2018-12-07 10:26 | Observation (INO) ==
[2018-12-07] MEDS ORDERED: Ondansetron 4 MG/2 ML VIAL IVP PRN (13:27)
[2018-12-07] MEDS ORDERED: Naloxone 0.4 MG/ML INJ IVP PRN (13:27)
[2018-12-07] MEDS ORDERED: Acetaminophen 325 MG TABLET PO PRN (13:27)
[2018-12-07] MEDS ORDERED: *HR* HYDROcodone/Acet 5/325 mg TABLET PO PRN (13:27)
[2018-12-07 15:23] LABS: Hematocrit 35.3 % (37.5-50.1); Hemoglobin 10.6 g/dL (12.9-16.9); Mean Corpuscular Hemoglobin 23.1 pg (28.0-33.3); Mean Corpuscular Volume 77.1 fL (83.0-100.0); Mean Platelet Volume 9.8 fL (9.4-12.4); Platelet Count 305 K/mcL (140-400); Red Blood Count 4.58 M/mcL (4.19-5.50); Red Cell Distribution Width 26.1 % (11.5-14.5); White Blood Count 11.2 K/mcL (4.3-11.1)
--- NOTE | 2018-12-07 15:41 | Internal Med History&Physical ---
Date of Encounter: 12/07/18 Time of Encounter: 15:38 Internal Medicine - H&P: HPI Chief complaint: Bright red blood per rectum Admitted From: Emergency Dept Plans for Post Hospital Care: Home History of present illness: Mr. Calabrese is a 23 year old male with a past medical history of asthma and Crohn's disease diagnosed in August 2018 now he was sent to our hospital from Gi Dr. Sloan's office with bright red blood per rectum. Pt stated he has been having bright red blood per rectum since Monday which is progressively worsening. Pt is currently on Prednisone 40mg PO Daily for his Chronic crohn's disease. He did mention he failed [employer] therapy for his Crohn's disease. He denied any CP / SOB. He denied any Abd pain. He denied any N/ V. He does co feeling fatigue / weak and lethargic. Past Med Surg Social Fam HX - Past Medical History Medical history: asthma, other Additional medical history: crohn's Psychiatric history: anxiety - Past Surgical History Additional surgical history: Ear tubes. wisdom teeth. 2 colonsoscopy. 2 endoscopyy - Social History Smoking Status: Never smoker Smokeless Tobacco Status: No Alcohol use: none Drug use: none - Additional Family History Additional family history: Family hsitory reviewed and non contribuitory to current problem... Denied any crohn's disease / inflammatory bowel disease in the family Internal Medicine - H&P: Meds Dicyclomine [Bentyl] 10 mg PO QID 10/29/17 [History] Escitalopram [Lexapro] 10 mg PO DAILY 10/29/17 [History] Omeprazole [PriLOSEC] 20 mg PO DAILY 10/29/17 [History] Sucralfate [Carafate] 1 gm PO QIDAC #120 tablet 10/31/17 [Rx] predniSONE [PredniSONE] 40 mg PO DAILY #60 tablet 10/31/17 [Rx] predniSONE [PredniSONE] 20 mg PO DAILY #13 tablet 09/06/18 [Rx] PredniSONE [Deltasone] 60 mg PO DAILY 5 Days tablet 12/05/18 [Rx] Allergy/AdvReac Type Severity Reaction Status Date / Time Sulfa (Sulfonamide Allergy See Verified 12/04/18 21:15 Antibiotics) Comments All Systems PM: A 10-system review of systems was performed and is negative for pertinent findings except as documented above in the HPI. Review of systems: All the systems are reviewed everything is benign except the systems and sym ptoms I mentioned in the history of present illness - Constitutional Vitals: Temp Pulse Resp BP Pulse Ox 98.3 F 73 14 119/75 100 12/07/18 12:08 12/07/18 12:08 12/07/18 12:08 12/07/18 12:08 12/07/18 12:08 General appearance: Present: A&O X 3, no acute distress, answers questions appropriately Exam: a - Head Head exam: Present: atraumatic, normal inspection - Neck Neck exam general surgery: Present: supple - Respiratory Respiratory exam: Present: decreased breath sounds. Absent: rales, respiratory distress, rhonchi, wheezes - Cardiovascular Cardiovascular exam: Present: RRR, +S1, +S2. Absent: tachycardia - GI/Abdominal GI/Abdominal exam: Present: normal bowel sounds, soft. Absent: distended, guarding, rebound, rigid, tenderness - Extremities Exam Extremities exam: Absent: calf tenderness, pedal edema, tenderness, warm - Back Exam Back exam: Absent: CVA tenderness (L), CVA tenderness (R) - Neurological Exam Neurological exam: Present: alert, oriented X3 - Psychiatric Psychiatric exam: Present: normal affect, normal mood - Skin Skin exam: Absent: rash Internal Med - H&P Results - Labs CBC & Chem 7: 12/07/18 14:41 Labs: Short CBC 12/07/18 Range/Units 14:41 WBC 11.2 H (4.3-11.1) K/mcL Hgb 10.6 L (12.9-16.9) g/dL Hct 35.3 L (37.5-50.1) % Plt Count 305 (140-400) K/mcL - Assessment and Plan (1) Crohn's disease Current Visit: Yes Status: Acute Assessment and plan: He does have possible Crohn's flare up Place the pt into Med Surg for observation Ordered CBC / BMP GI consulted Inc Prednisone to 60mg Daily NPO after mid night clear liquid diet for now Possible colonoscopy in AM IV hydration Qualifiers: Gastrointestinal tract location: large intestine Digestive disease complication type: with rectal bleeding Qualified Code(s): K50.111 - Crohn's disease of large intestine with rectal bleeding (2) Rectal bleeding Current Visit: No Status: Acute Assessment and plan: care as above (3) Acute blood loss anemia Current Visit: No Status: Acute Assessment and plan: His Hb @ 10.6 dropped down from 11.7 2 days ago No need of blood transfusions IV hydration Cont close monitoring of Hb for now (4) DVT prophylaxis Current Visit: No Status: Acute Assessment and plan: low risk early ambulation recommended - Time Spent With Patient Total time spent is greater than 50% in coordination of care (as documented) at patient's floor/unit and/or counseling patient:
[2018-12-07 15:44] LABS: Alanine Aminotransferase 11 Units/L (7-52); Albumin 3.7 g/dL (3.5-5.7); Albumin/Globulin Ratio 1.6 (1.1-2.2); Alkaline Phosphatase 62 Units/L (34-104); Aspartate Amino Transferase 8 Units/L (13-39); BUN/Creatinine Ratio 19 (6-26); Bilirubin,Total 0.2 mg/dL (0.3-1.0); Blood Urea Nitrogen 15 mg/dL (6-20); Calcium 9.2 mg/dL (8.6-10.3); Carbon Dioxide 29 mEq/L (23-29); Chloride 106 mEq/L (98-107); Globulin 2.3 g/dL (2.4-3.5); Glucose 85 mg/dL (70-105); Osmolality,Calculated 290 (280-300); Potassium 3.5 mEq/L (3.5-5.1); Sodium 140 mEq/L (136-145); eGFR For African Americans > 60 (> 60); eGFR For Non-African Americans > 60 (> 60)
[2018-12-07 15:47] LABS: Anisocytosis 2+ (Not Present); Eosinophils # 0.7 K/mcL (0.0-0.6); Lymphocytes # 2.7 K/mcL (0.6-4.6); Monocytes # 0.7 K/mcL (0.0-1.3); Neutrophils # 7.2 K/mcL (1.6-8.9); Reactive Lymphocytes Present (Not Present)
[2018-12-07 15:48] LABS: Basophilic Stippling 1+ (Not Present); Platelet Estimate Normal (Normal)
[2018-12-07] MEDS ORDERED: Sucralfate 1 GM TABLET PO SCH (16:30)
[2018-12-07] MEDS ORDERED: SODIUM CHLORIDE/NAHCO3/KCL/PEG 4,000 ML SOLN.RECON PO ONE (17:00)
[2018-12-07] MEDS ORDERED: predniSONE 20 MG TABLET PO ONE (20:26)
[2018-12-08] MEDS ORDERED: 0.9 % Sodium Chloride 1,000 ML IVC SCH
[2018-12-08 04:48] LABS: Hematocrit 35.1 % (37.5-50.1); Hemoglobin 10.6 g/dL (12.9-16.9); Mean Corpuscular HGB Conc 30.2 g/dL (31.6-35.5); Mean Corpuscular Hemoglobin 23.5 pg (28.0-33.3); Mean Corpuscular Volume 77.7 fL (83.0-100.0); Mean Platelet Volume 9.9 fL (9.4-12.4); Platelet Count 303 K/mcL (140-400); Red Blood Count 4.52 M/mcL (4.19-5.50); White Blood Count 8.6 K/mcL (4.3-11.1)
[2018-12-08] MEDS ORDERED: predniSONE 20 MG TABLET PO SCH (09:00)
--- NOTE | 2018-12-08 09:35 | Anesthesia Evaluation PreOp ---
Date of Encounter: 12/08/18 Time of Encounter: 09:33 - Past History Planned Operation: colonoscopy Cardiac History: Denies any Significant Hx Pulmonary History: Asthma (albuteral inhaler prn) Other Medical History: GERD Anesthesia History: No Prior Anesthetic Complications Alcohol Use: none Drug use: none Medications and Allergies Dicyclomine [Bentyl] 10 mg PO QID 10/29/17 [History] Escitalopram [Lexapro] 10 mg PO DAILY 10/29/17 [History] Omeprazole [PriLOSEC] 20 mg PO DAILY 10/29/17 [History] Sucralfate [Carafate] 1 gm PO QIDAC #120 tablet 10/31/17 [Rx] predniSONE [PredniSONE] 40 mg PO DAILY #60 tablet 10/31/17 [Rx] predniSONE [PredniSONE] 20 mg PO DAILY #13 tablet 09/06/18 [Rx] PredniSONE [Deltasone] 60 mg PO DAILY 5 Days tablet 12/05/18 [Rx] Allergy/AdvReac Type Severity Reaction Status Date / Time Sulfa (Sulfonamide Allergy See Verified 12/04/18 21:15 Antibiotics) Comments Anesthesia Results - Labs 12/08/18 03:43 12/07/18 14:41 Anesthesia Exam Vital Signs/O2 Sat, Most Current Temp Pulse Resp BP Pulse Ox 98.5 F 67 17 122/79 98 12/08/18 08:14 12/08/18 08:14 12/08/18 08:14 12/08/18 08:14 12/08/18 08:14 Weight: 103 kg NPO (# of Hours): 8 - HEENT Pupil (Motor): Pupils equal Mallampati: III Teeth: Normal Oral Opening: Greater than 3 - FURNACE LOADER LOC: Oriented FURNACE LOADER Motor: Normal RUE, Normal LUE, Normal RLE, Normal LLE, Normal Face FURNACE LOADER Sensory: Normal: RUE, LUE, RLE, LLE, Face - Cardiac Rhythm: Regular - Pulmonary Breath Sounds: bilateral Clear Respiratory Effort: Symmetrical Anesthesia Assess/Plan ASA Score: 2 Level of consciousness: Cooperative Anesthetic Plan: MAC Monitoring Plan: Standard Monitors Recovery Plan: Other
--- NOTE | 2018-12-08 09:50 | Gastroenterology Consult Note ---
Date of Encounter: 12/21/18 Time of Encounter: 17:00 - Assessment and plan (1) Acute blood loss anemia Status: Acute Assessment and plan: Plan Colonoscopy (2) Crohn's disease Status: Acute Assessment and plan: small bowel: plan colonsocopy Qualifiers: Gastrointestinal tract location: large intestine Digestive disease complication type: with rectal bleeding Qualified Code(s): K50.111 - Crohn's disease of large intestine with rectal bleeding (3) GI bleed Status: Acute Assessment and plan: Type and screen. Plan colonoscopy Qualifiers: GI bleed type/associated pathology: unspecified gastrointestinal hemorrhage type Qualified Code(s): K92.2 - Gastrointestinal hemorrhage, unspecified (4) Hematochezia Status: Acute - Time Spent With Patient Total time spent is greater than 50% in coordination of care (as documented) at patient's floor/unit and/or counseling patient: 25 - 35 minutes GI History of Present Illness - Data of Consult Patient: known to practice within the last 3 years Consult date: 12/07/18 Requesting Physician: Gregg Andrews MD - Consult Narrative History of present illness: Mr. Calabrese is a 22 year old male with PMHx of asthma and recent diagnosis of Crohn's disease. He comes in with history of several episodes of hematochezia. He had presented to ED 2 days ago and was noted to have a hemoglobin of 11.6 and was discharged home. SInce he continued with the same and the blood got darker - burgundy we decided to admit him and plan colonoscopy. In the past he presented to [facility] on 10/29/2017 with chief complaints of rectal bleeding and a near syncopal episode. He went to the bathroom and had a large bowel movement that consisted of bright red and maroon colored blood. He then tried to lay down to help his stomach discomfort which he describes as an "upside down" feeling. He had 3 more bloody bowel movements during this time. At approximately 8 PM, he went to the bathroom where he defecated another large maroon-colored bloody bowel movement. He stated he began to feel lightheaded, dizzy, and diaphoretic, at which time he fell to the floor. He states he is unsure if he lost consciousness. He remembers waking up right afterwards. He denies hitting his head. He stated he began to feel lightheaded, dizzy, and diaphoretic, at which time he fell to the floor. He states he is unsure if he lost consciousness. He remembers waking up right afterwards. He denies hitting his head. He denies fever, chills, chest pain, SOB, abdominal pain, nausea, vomiting. Procedures: EGD 10/11/2017 Dr. Sloan: LA Grade A esophagitis, non-bleeding erosions in gastric antrum, gastritis, duodenitis, H pylori positive. Colonoscopy 08/30/2017 Dr. Sloan: Friable, furrowed, nodular, pseudopolypoid and ulcerated mucosa in TI, internal hemorrhoids. He stated he began to feel lightheaded, dizzy, and diaphoretic, at which time he fell to the floor. He states he is unsure if he lost consciousness. He remembers waking up right afterwards. He denies hitting his head. NSAIDs: None Anticoagulation: None Past Med Surg Social Fam HX - Past Medical History Medical history: asthma, other Additional medical history: crohn's Psychiatric history: anxiety - Past Surgical History Additional surgical history: Ear tubes. wisdom teeth. 2 colonsoscopy. 2 endoscopyy - Social History Smoking Status: Never smoker Smokeless Tobacco Status: No Alcohol use: none Drug use: none - Gastrointestinal Gastrointestinal: Present: as per HPI, change in bowel habits, diarrhea, hematochezia - Constitutional Constitutional: as per HPI, fatigue - EENT Ears: Present: as per HPI - Respiratory Respiratory IM: Present: as per HPI - Neurological ROS Neurological GI: Present: as per HPI - Musculoskeletal Musculoskeletal ROS GI: Present: as per HPI - Integumentary Additional Comment: Negative - Constitutional Vitals: Temp Pulse Resp BP Pulse Ox 98.5 F 67 17 122/79 98 12/08/18 08:14 12/08/18 08:14 12/08/18 08:14 12/08/18 08:14 12/08/18 08:14 Results - Labs CBC & Chem 7: 12/08/18 03:43 12/07/18 14:41 Labs: Entire Visit 12/08/18 03:43 Hgb 10.6 L Hct 35.1 L Consult Discharge Plan - Plan Instructions: Colonoscopy (DC), Crohn Disease (GEN) Additional Instructions: take PO Prednisone 40mg QD till GI follow up on 12/11 Referrals: Adair Sloan MD [Partnered Physician] - Julio Smith MD [Primary Care Provider] -
[2018-12-08] MEDS ORDERED: *HR* FentaNYL (PF) 100 MCG/2 ML VIAL ONE (10:00)
[2018-12-08] MEDS ORDERED: Propofol 500 MG/50 ML INFUS..BTL ONE (10:07)
[2018-12-08] MEDS ORDERED: Lidocaine -MPF 2% 2 ML VIAL ONE (10:07)
--- NOTE | 2018-12-08 10:27 | Anesthesia Evaluation Post Op ---
Date of Encounter: 12/08/18 Time of Encounter: 10:25 - Vital Signs Vital Signs: Vital Signs Time 1020 BP 91/51 Pulse 63 Resp 20 O2 Sat 99 - Lungs Lungs: Clear Ascult./Percussion - Airway Airway: Non-obstructed - Cardiovascular Regular Rate - Mental Status Mental Status: Alert & Oriented, Answers Appropriately - Pain Pain Scale: 0 - Nausea Vomiting Nausea Vomiting: Not Present - Hydration Hydration: NPO, Has not voided - Discharge PostOp Status: Transfer Patient to floor
[2018-12-08 10:59] VITALS: BP 112/72
--- NOTE | 2018-12-08 11:54 | Discharge Summary ---
- NOTES TO OUTPATIENT PROVIDER Notes to Outpatient Provider: Follow-up with GI on 12/11. Take PO prednisone 40 mg daily till then Date of Encounter: 12/08/18 Time of Encounter: 10:30 - Discharge Diagnosis (1) Rectal bleeding Priority: Secondary Status: Acute (2) Crohn's disease Priority: Primary Status: Acute Qualifiers: Gastrointestinal tract location: large intestine Digestive disease complication type: with rectal bleeding Qualified Code(s): K50.111 - Crohn's disease of large intestine with rectal bleeding (3) DVT prophylaxis Priority: Secondary Status: Acute Hospital course: Mr. Calabrese is a 23 year old male with history of Crohn's disease who was admitted for bright red blood per rectum. Hb was at his baseline at 10.6 mL stable. 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 Coagulation with bipolar probe was performed and he will be discharged home on 40mg of PRednisone for 4 days with GI follow up on 12/11. Discharge discussed with: patient, family, pricing consultant - Time Spent with Patient Total time spent providing and/or coordinating discharge services:27 mins - Discharge Medications Prescriptions: New predniSONE [PredniSONE] 40 mg PO DAILY 4 Days #8 tablet Continued Omeprazole [PriLOSEC] 20 mg PO DAILY Dicyclomine [Bentyl] 10 mg PO QID Escitalopram [Lexapro] 10 mg PO DAILY Sucralfate [Carafate] 1 gm PO QIDAC #120 tablet Discontinued predniSONE [PredniSONE] 40 mg PO DAILY #60 tablet predniSONE [PredniSONE] 20 mg PO DAILY #13 tablet PredniSONE [Deltasone] 60 mg PO DAILY 5 Days tablet Home Medications: Dicyclomine [Bentyl] 10 mg PO QID 10/29/17 [History] Escitalopram [Lexapro] 10 mg PO DAILY 10/29/17 [History] Omeprazole [PriLOSEC] 20 mg PO DAILY 10/29/17 [History] Sucralfate [Carafate] 1 gm PO QIDAC #120 tablet 10/31/17 [Rx] predniSONE [PredniSONE] 40 mg PO DAILY 4 Days #8 tablet 12/08/18 [Rx] Allergies/Adverse Reactions: Allergy/AdvReac Type Severity Reaction Status Date / Time Sulfa (Sulfonamide Allergy See Verified 12/04/18 21:15 Antibiotics) Comments Date of admission: 12/07/18 11:53 Primary care physician: Julio Smith MD Consults: 12/07/18 12:31 Consult to Nutrition [CONS] Routine Comment: Consulting Provider: NUTRITION Reason for Dietary Consult: MST Score 12/07/18 15:36 Consult to Gastroenterology [CONS] Routine Consulting Provider: Gastroenterology Shena Reason for Consult: GI Bleed Time Notified: 15:37 Call Completed: Yes - Constitutional Vitals: Temp Pulse Resp BP Pulse Ox 98.2 F 73 14 112/72 98 12/08/18 10:53 12/08/18 10:53 12/08/18 10:53 12/08/18 10:53 12/08/18 10:53 General appearance: Present: A&O X 3, no acute distress, answers questions appropriately Exam: General: Alert and oriented, not in acute distress. Garvin-facies noted Cardiovascular:Normal S1 & S2, No JVD. Pulse regular. Lungs: clear to auscultation, no wheezes/rales Abdomen:Soft, non-tender, no rigidity. Extremities:No deformity or swelling Neurological:Normal cognition and motor skills. Non-focal - Patient Status Disposition: Home, Self-Care Condition: Fair Functional capacity at discharge: independent ambulation Overall status at discharge: patient is progressing back to baseline - Discharge Instructions Follow Up With: Julio Smith MD [Primary Care Provider] - Adair Sloan MD [Partnered Physician] - Additional Instructions: take PO Prednisone 40mg QD till GI follow up on 12/11 - Diet and Activity Activity: resume usual activities as tolerated Diet: other (Mechanical soft diet)
== END 2018-12-08 15:00 | disposition home or self-care (01) ==
LOC: 3ANU → SUATTDRO 11:53 → 3ANU 15:52
PROVIDERS: ADMIT Internal Medicine Nephrology; ATTEND Internal Medicine
PROC: ENDOCCB (2018-12-08 08:00)